=== PATIENT | male | born 1955 | race Caucasian/White ===

== ENCOUNTER 2022-02-03 04:15 | Day surgery (SDC) | payer OTHER ==
[2021-12-28 11:45] VITALS: BMI 28.8
[2022-02-03 12:28] VITALS: TEMP 97.2
[2022-02-03 15:01] VITALS: BP 130/56; PULSE 66
== END 2022-02-03 13:30 | disposition home or self-care (01) ==
LOC: JASU-ENDO 04:15
PROVIDERS: ATTEND Internal Medicine Gastroenterology
PROC: 0DJD8ZZ Inspection of Lower Intestinal Tract, Via Natural or Artificial Opening Endoscopic (ICD-10-PCS; principal; 2022-02-03 10:30)
DX: Z12.11 Encounter for screening for malignant neoplasm of colon (principal); K57.30 Diverticulosis of large intestine without perforation or abscess without bleeding; K64.8 Other hemorrhoids; Z86.010 Personal history of colon polyps